=== PATIENT | female | born 1995 | race Caucasian/White ===

== ENCOUNTER 2021-09-30 16:45 | Emergency (ER) | payer OTHER ==
[~2021-09-30 16:45] MED LIST: OMNICEF 300 MG300 MG PO; PYRIDIUM200 MG PO; ZOFRAN ODT 4 MG4 MG PO
[2021-10-02 08:17] LABS: RPR Non Reactive (Non Reactive)
[2021-10-02 22:09] LABS: CHLAMYDIA TRACHOMATIS, NAA Negative (Negative); NEISSERIA GONORRHOEAE, NAA Negative (Negative)
== END 2021-09-30 20:30 | disposition home or self-care (01) ==
LOC: ER1 16:45
PROVIDERS: Physician Assistant Medical; Student in an Organized Health Care Education/Training Program
DX: Z20.2 Contact with and (suspected) exposure to infections with a predominantly sexual mode of transmission (principal); Z90.49 Acquired absence of other specified parts of digestive tract
CPT/HCPCS: 81001; 84703; 86592; 99283; J0561